=== PATIENT | female | born 2000 | race Caucasian/White ===

== ENCOUNTER 2019-12-11 15:13 | Emergency (ER) | payer BC, SELFPAY ==
[2019-12-11 15:14] VITALS: BP 122/71; PULSE 122; RESP 16; RESP 18; TEMP 35.7; O2SAT 98; BMI 25.9
--- NOTE | 2019-12-11 15:33 | ED.VIS.GEN ---
History of Present Illness Chief Complaint: Fatigue Informant: Patient Onset: Days Context: Gradual Onset Narrative: Patient is a 19-year-old female with no past medical history presenting from her dorm for worsening fatigue, generalized malaise and an episode of paresthesias. Patient states that she has been feeling rundown since September. She initially thought it was because she is a vegetarian and started taking iron pills this week. She states she is been too busy to see a doctor. She notes that for the last week she has been feeling more tired. Last night she took a nap between 5 and 7. When she woke up from this nap she states she could not get up or even open her eyes. She states she felt that she was alert but could not move. She then went back to sleep and then woke up again around 2 AM. At that time she felt that she had tingling in her bilateral arms. She notes she was sleeping slightly on her left side. Since it was a middle the night she just went back to sleep and woke up again at 11 AM. Patient states she slept her classes. She was able to go to a job interview however. She then decided to walk from [facility] to the hospital to be evaluated further. She notes she is had difficulty regulating her temperature between hot and cold. She notes that her periods last for a week. She just ended her period yesterday. She will go through approximately 3-4 pads or tampons a day. She notes she does passed some large clots. She denies any fevers. She denies any vision changes and states her glasses prescription is up-to-date. She notes she sometimes gets a headache when she is in class and looking a large projector screen. She denies any vomiting or urinary symptoms. She denies any weight changes or abdominal pain. She is requesting referral for a primary care doctor she is initially from [place]. Past Medical History - Allergies and Home Meds Allergies/Adverse Reactions: Allergies No Known Allergies Allergy (Verified 12/11/19 15:18) Primary Care Physician: Leandra Osborne DO [NON-STAFF] - Review of Systems General: Reports: Malaise. Denies: Chills, Fever, Sweats Eyes: Denies: Visual changes - bilaterally, Diplopia ENT: Denies: Bilateral ear pain, Rhinorrhea, Sore throat Cardiovascular: Denies: Chest pain, Palpitations Respiratory: Denies: Dyspnea, Cough, Dyspnea on exertion Gastrointestinal: Denies: Abdominal pain, Nausea, Vomiting, Diarrhea, Melena, Hematochezia Genitourinary: Denies: Dysuria, Hematuria, Frequency Musculoskeletal: Reports: Myalgias. Denies: Back pain, Swelling, Extremity Pain Skin: Denies: Rash, Wounds Neurological: Reports: Headache - intermittent, none currently , Parasthesia - arms, currently resolved. Denies: Weakness, Numbness Physical Exam Vital Signs/Narrative: Vital Signs Temp Pulse Resp BP Pulse Ox 12/11/19 15:14 96.2 F L 122 H 18 122/71 H 98 Inital Vital Signs reviewed: Yes General: Well nourished, Well developed, No Acute Distress, - - Patient texting on phone, sitting comfortably in bed when I first walk-in. Head: Normocephalic, Atraumatic Eyes: Perrl, EOMI. Negative for: Pale conjunctiva ENT: Moist mucous membranes, No rhinorrhea, TM's clear. Negative for: Nasal congestion Neck: Supple, Nontender, No lymphadenopathy Cardiovascular: Regular rhythm, No murmurs, Tachycardia Respiratory: No distress, CTA bilaterally, Chest nontender Abdomen: Soft, Nontender, Nondistended, Normal bowel sounds Back: Nontender, Normal Inspection. Negative for: CVA tenderness Extremities: Nontender, No edema Skin: Normal color, No rash Neurological: Alert, Oriented x3, Cranial nerves II-XII grossly intact, Normal Strength, Normal Sensation Psychological: Normal affect, Normal Mood Diagnostic/Tx/Re-eval Laboratory Data 12/11/19 12/11/19 12/11/19 15:47 15:50 15:55 WBC 7.1 RBC 4.97 Hgb 15.1 H Hct 45.4 MCV 91.3 MCH 30.4 MCHC 33.3 RDW Std Deviation 42.8 RDW Coeff of Catarina 12.8 Plt Count 311 MPV 9.7 Immature Gran % (Auto) 0.100 Neut % (Auto) 62.9 Lymph % (Auto) 30.6 Republic % (Auto) 5.3 Eos % (Auto) 0.7 Baso % (Auto) 0.4 Absolute Neuts (auto) 4.5 Absolute Lymphs (auto) 2.18 Nucleated RBC % 0 Sodium Potassium Chloride Carbon Dioxide Anion Gap BUN Creatinine Estim Creat Clear Calc Est GFR (MDRD) Af Amer Est GFR (MDRD) Non-Af BUN/Creatinine Ratio Glucose Calcium TSH Urine Color Yellow Urine Clarity Sl. Cloudy Urine pH 7.0 Ur Specific Vanderbilt 1.010 Urine Protein 30 H Urine Glucose (UA) Normal Urine Ketones Negative Urine Occult Blood Negative Urine Nitrite Negative Urine Bilirubin Negative Urine Urobilinogen Normal Ur Leukocyte Esterase 25 H Urine RBC 0 SEEN Urine WBC 0-5 SEEN Ur Squamous Epith Cells 0-5 SEEN Urine Bacteria RARE Urine Mucus 0 SEEN Urine Test Negative 12/11/19 15:55 WBC RBC Hgb Hct MCV MCH MCHC RDW Std Deviation RDW Coeff of Catarina Plt Count MPV Immature Gran % (Auto) Neut % (Auto) Lymph % (Auto) Republic % (Auto) Eos % (Auto) Baso % (Auto) Absolute Neuts (auto) Absolute Lymphs (auto) Nucleated RBC % Sodium 141 Potassium 3.7 Chloride 107 Carbon Dioxide 29.0 Anion Gap 5 BUN 11 Creatinine 0.76 Estim Creat Clear Calc 109.62 Est GFR (MDRD) Af Amer 124 Est GFR (MDRD) Non-Af 103 BUN/Creatinine Ratio 14.6 Glucose 86 Calcium 9.2 TSH 1.09 Urine Color Urine Clarity Urine pH Ur Specific Vanderbilt Urine Protein Urine Glucose (UA) Urine Ketones Urine Occult Blood Urine Nitrite Urine Bilirubin Urine Urobilinogen Ur Leukocyte Esterase Urine RBC Urine WBC Ur Squamous Epith Cells Urine Bacteria Urine Mucus Urine Test - Medical Decision Making Patient is evaluated for generalized weakness and episode of paresthesias. She appears nontoxic in no acute distress. On arrival she is initially tachycardic. She is otherwise hemodynamically stable. She is given IV fluids and her tachycardia improves. She does not appear anemic even though she is concerned about this. CBC is actually slightly high at 15.1. Work-up is otherwise normal including a normal white blood cell count, platelets BMP and TSH. Patient does have 30 protein in her urine but no signs of infection. The exact cause of her symptoms not clear but I think she stable for outpatient follow-up. She is referred to PCP for further follow-up. Patient is counseled on signs and symptoms requiring return to the emergency room. Patient verbalizes agreement and understand this plan. Patient discharged home in stable and improved condition. ED Disposition - Plan for ED Patient: Disposition: Home or Assisted Living Diagnosis: Weakness, Fatigue Instructions: WEAKNESS, Unk Cause Referrals: Fast,Leandra, DO [NON-STAFF] - Additional Instructions: Your lab work was largely normal today. You are not anemic. You might of been slightly dehydrated. There was slight protein in your urine that needs to be rechecked.
[2019-12-11 16:02] LABS: Mucous, Urine 0 SEEN /hpf (<or=2+); Red Blood Cells-Urine 0 SEEN /hpf (0-5)
[2019-12-11] MEDS: 0.9% Normal Saline 1,000 ML 999 ML IV (16:02)
[2019-12-11 16:04] LABS: Color, Urine Yellow (Yellow); Glucose, Dipstick Normal (Normal); Ketone-Dipstick Negative (Negative); Leukocyte Esterase-Dipstick 25 /ul (Negative); Nitrite-Dipstick Negative (Negative); Occult Blood-Urine Negative /ul (Negative); Protein-Dipstick 30 mg/dl (Negative); Urine Bilirubin Dipstick Negative (Negative); Urine Clarity Sl. Cloudy (Clear); Urine Urobilinogen Normal (Normal)
[2019-12-11 16:07] LABS: Absolute Lymphocyte Count 2.18 X10^3/uL (0.83-4.51); Absolute Neutrophil Count 4.5 X10^3/uL (2.0-7.7); Basophil# 0.03 X10^3/uL; Basophil% 0.4 % (0-1); Eosinophil# 0.05 X10^3/uL; Eosinophils% 0.7 % (0-5); Hematocrit 45.4 % (37-47); Hemoglobin 15.1 g/dL (12.0-15.0); Lymphocyte # 2.18 X10^3/ul (4.0); Lymphocyte % 30.6 % (19-41); Mean Corp Hgb Conc 33.3 g/dL (32-36); Mean Corpuscular Hgb 30.4 pg (27.0-32.0); Mean Corpuscular Volume 91.3 fL (81-99); Mean Platelet Vol. 9.7 fl (6.2-12.0); Monocyte# 0.38 X10^3/uL; Monocyte% 5.3 % (0-10); NRBC Flagged by Analyzer 0 % (0-5); Neutrophil # 4.47 X10^3/uL (2.7-7.7); Neutrophil % 62.9 % (47-70); Platelet Count 311 K/mm3 (150-450); RBC Distribution Width CV 12.8 % (11.6-14.6); RBC Distribution Width SD 42.8 fl (35.1-43.9); Red Blood Count 4.97 M/mm3 (4.2-5.4); White Blood Count 7.1 K/mm3 (4.4-11.0)
[2019-12-11 16:24] LABS: Bacteria RARE /hpf (None Seen); Squamous Epithelial Cells - UA 0-5 SEEN /hpf (5-10); White Blood Cells 0-5 SEEN /hpf (0-5)
[2019-12-11 16:25] LABS: Internal QC Validated? YES +Cl - CLEAR BKGD; Pregnancy, Urine Negative Negative
[2019-12-11 16:31] LABS: Anion Gap 5 (5-15); BUN 11 mg/dL (7-18); BUN/Creat Ratio 14.6 RATIO (10-20); Calcium,Total 9.2 mg/dL (8.5-10.1); Chloride 107 mmol/L (98-107); Creatinine, Serum 0.76 mg/dL (0.55-1.02); EST Glomerular Filtration Rate 103 mL/min (>60); Est Glom Filt Rate - Afr Amer 124 mL/min (>60); Estimated Creatinine Clearance 109.62 ml/min; Glucose 86 mg/dL (74-106); Potassium 3.7 mmol/L (3.5-5.1); Sodium Level 141 mmol/L (136-145); Thyroid Stim Hormone (TSH) 1.09 uIU/mL (0.358-3.74)
[2019-12-11 16:59] VITALS: BP 107/67; PULSE 86; RESP 16; O2SAT 100
--- NOTE | 2019-12-11 17:27 | ED.RN ---
IV DC'ED, CATHETER INTACT, SMALL GAUZE DRESSING PLACED. DISCHARGE INSTRUCTIONS GIVEN TO AND REVIEWED WITH PATIENT, PATIENT DENIES QUESTIONS OR CONCERNS AND VOICES UNDERSTANDING OF DISCHARGE INSTRUCTIONS. PT AMBULATES OUT OF ROOM WITHOUT DIFFICULTY.
== END 2019-12-11 17:28 | disposition home or self-care (01) ==
PROVIDERS: Emergency Provider Emergency Medicine; PCP Pediatrics
DX: R53.1 Weakness (principal); R53.83 Other fatigue; R51 Headache; R20.2 Paresthesia of skin
CPT/HCPCS: 80048; 81001; 81025; 84443; 85025; 96360; 99282; J7030; A4216

== ENCOUNTER → 2020-01-08 10:19 | Outpatient (CLI) | payer BC, SELFPAY ==
[2019-12-11 15:14] VITALS: BMI 25.9
--- NOTE | 2020-01-08 10:24 | US_ITS ---
STUDY: ABDOMINAL ULTRASOUND REASON FOR EXAM: Female, 19 years old. HEPATOMEGALY, SPLENOMEGALY, GENERALIZED ABD PAIN TECHNIQUE: Transabdominal ultrasound was performed with real-time and static workman scale imaging. TECHNICAL QUALITY: Adequate. COMPARISON: None. FINDINGS: Liver: The liver measures 14.8 cm. There is normal echogenicity of the liver. The bile ducts are within normal limits. There is hepatic color flow. The direction of portal flow is hepatopetal. There is no demonstrated mass lesion. Portal vein measurement: Gallbladder: Normal distended gallbladder. The gallbladder wall measures 1.8 mm. There is a negative sonographic Corley''s sign. There is no pericholecystic fluid. There are no gallstones. Common Bile Duct (C.B.D.): The common bile duct measures 5.2 mm. Pancreas: Normal size of the head, body and tail of the pancreas. There is normal echogenicity of the pancreas. There is no demonstrated pancreatic mass or cyst. Spleen: Normal size of the spleen. The spleen measures 10.6 cm x 5.5 cm x 4.5 cm. Right Kidney: Normal size of the right kidney. The right kidney measures 9.8 cm x 5.3 cm x 3.4 cm. Normal renal cortex. The right cortex measures 1.1 cm. There is no demonstrated renal mass or cyst. There is no right hydronephrosis. Left Kidney: Normal size of the left kidney. The left kidney measures 9.5 cm x 4.6 cm x 3.8 cm. Normal renal cortex. The left cortex measures 1.2 cm. There is no demonstrated renal mass or cyst. There is no left hydronephrosis. Aorta: Unremarkable I.V.C.: The IVC is patent. There is no ascites. US/Abdomen Complete IMPRESSION: Normal abdominal ultrasound examination. Electronically Signed: Neymar Brooke, at 12:02 EST , Service support ,
== END ==
PROVIDERS: PCP Nurse Practitioner; Referring Provider Nurse Practitioner; Visit Provider Nurse Practitioner
DX: R10.9 Unspecified abdominal pain (principal)
CPT/HCPCS: 76700